=== PATIENT | male | born 1995 | race African-American/Black ===

== ENCOUNTER 2017-08-01 11:13 | Emergency (ER) | payer OTHER ==
[~2017-08-01] VITALS: Ht 172.7 cm; Wt 72.6 kg
--- OUTSIDE RECORDS SUMMARY | 2017-08-01 11:21 | XMS REPORT | Continuity of Care Document ---
Author Author [facility] Organization [facility] Address [facility] [address] [place] [address] Phone Unavailable Support Name Relationship Address Phone KRIS ORTIZ DO Caregiver [address] [place] [address] Unavailable ABHI SAAB Next Of Kin Unknown Insurance Providers Guarantor Ely Lazcano Address [address] [place] [address] CELL Email N Payer [facility] [place] Policy Number [id number] Subscriber's Name Ely Lazcano Relationship 18 Self / Same As Patient Group Number [id number] Group Name [facility] Payer Payroll Deduction [place] Policy Number [id number] Subscriber's Name Ely Lazcano Relationship 18 Self / Same As Patient Advance Directives Directive Response Recorded Date/Time Do you have an Advanced Directive? No 03/10/99 7:21pm Advance Directives No 09/25/11 2:10pm Living Will No 09/25/11 2:10pm Power of Date Night Sitter for Health Care No 09/25/11 2:10pm Organ, Tissue, or Eye Donor No 09/25/11 2:10pm Do you have a signed organ donor card? No 03/10/99 7:21pm Chief Complaint and Reason for Visit Chief Complaint FLU SYNDROME Reason for Visit [id number] Problems Medical Problem Onset Date Status Flu Unknown Acute Laceration Unknown Acute Right foot sprain Unknown Acute Medications Current Home Medications Medication Dose Units Route Directions Days Qty Instructions Start Date Albuterol (Proair 17GM Hfa Inhaler*) 1 Puff Inh 2 Puff Inhalation Every 6 To 8 Hours As Needed for Cough 1 Inhaler INHALE 2 PUFFS 03/22/17 Ibuprofen (Ibuprofen 800MG*) 800 Mg Tablet 800 Mg ORAL Three Times A Day 30 Tablet 06/09/15 No Known Medications . Oseltamivir Phosphate (Tamiflu) 75 Mg Capsule 75 Mg ORAL Twice A Day 10 Cap 03/22/17 Past Home Medications Medication Directions Ordered Status Cephalexin Monohydrate (Keflex) 250 Mg Capsule, 250 Mg Oral Three Times A Day 04/09/09 Discontinued Methylphenidate Hcl (Concerta) 27 Mg/Bottle Tab.osm.24, Daily Discontinued Social History Social History Problem Response Recorded Date/Time Onset Date Status Smoking Status Never smoker 06/09/2015 7:42pm Not Applicable Not Applicable Tobacco Use Denies Use 06/09/2015 7:42pm Not Applicable Not Applicable Smoking Status Start Date Stop Date Never smoker Hospital Discharge Instructions No hospital discharge instruction information available. Plan of Care Discharge Date 03/22/17 2:20am Condition at Discharge Stable Instructions/Education Provided Influenza (ED) Forms Provided WORK RELEASE Prescriptions See Medication Section Functional Status Query Response Date Recorded Patient Behavior Cooperative Appropriate March 22, 2017 1:30am Allergies, Adverse Reactions, Alerts No known allergies. Immunizations Query Response on File Recorded Date/Time Hx Diphtheria, Pertussis, Tetanus Vaccination Unknown 03/22/17 1:30am Hx Influenza Vaccination Yes 03/22/17 1:30am Hx Pneumococcal Vaccination No 03/22/17 1:30am Hx Tetanus Toxoid Vaccination Y - 9 YEARS AGO 04/09/09 9:20pm Vital Signs Acute Vital Signs Vital Response Date/Time Temperature (Fahrenheit) 99.8 degrees F (97.6 - 99.5) 03/22/2017 2:10am Temperature Source Temporal Artery 03/22/2017 2:10am Pulse Rate (adult) 116 bpm (60 - 90) 03/22/2017 2:10am Respiratory Rate 20 bpm (12 - 24) 03/22/2017 2:10am Blood Pressure 100/57 mm Hg 03/22/2017 2:10am O2 Sat by Pulse Oximetry 96 % (90 - 100) 03/22/2017 2:10am Oxygen Delivery Method Room Air 03/22/2017 2:10am Pain Location Body Site Modifier Lower 03/22/2017 2:10am Pain Description Aching 03/22/2017 2:10am Height 5 ft 8 in 03/22/2017 1:30am Weight 147.71 lb 03/22/2017 1:30am Body Mass Index 22.0 kg/m^2 03/22/2017 1:30am Results No relevant diagnostic test, laboratory data and/or discharge summary information available. Procedures No procedure information available. Encounters Encounter Location Arrival/Admit Date Discharge/Depart Date Attending Provider Departed Emergency Room [place] 03/22/17 1:29am 03/22/17 2:20am KRIS ORTIZ DO Recent Diagnosis
--- OUTSIDE RECORDS SUMMARY | 2017-08-01 11:21 | XMS REPORT | Continuity of Care Document ---
Author Author [facility] Address Unknown Phone Unavailable Allergies Active Description Code Type Severity Reaction Onset Reported/Identified Relationship to Patient Clinical Status Yes NKDA N/A N/A Medications Medication Packaging Start Date Stop Date Route Dosage Sig CLINDAMYCIN HCL 10/01/2016 ORAL 40 4 times a day Problems Date Dx Coded Attending Type Code Diagnosis Diagnosed By 06/18/2013 JOVANNI MARLOW MD V03.89 MENINGOCOCCAL DX Procedures There is no data. Results There is no data. Encounters ACCT No. Visit Date/Time Discharge Status Pt. Type Provider Facility Loc./Unit Complaint [id number] 06/18/2013 12:47:00 06/18/2013 23:59:59 CLS Outpatient JOVANNI MARLOW MD [id number] 07/05/2014 07:06:25 07/05/2014 07:06:25 DIS Outpatient
--- OUTSIDE RECORDS SUMMARY | 2017-08-01 11:21 | XMS REPORT | Continuity of Care Document ---
Author Author [facility] Organization [facility] Address [facility] [address] [place] [id number] Phone Unavailable Support Name Relationship Address Phone YOBANY GLEASON DO Caregiver [address] [place] [address] Unavailable IGOR LAZCANO Next Of Kin [address] [place] [id number] Insurance Providers Payer Name Policy Number Subscriber Name Relationship [facility] [id number] Ely Lazcano 18 Self / Same As Patient Advance Directives Directive Response Recorded Date/Time Do you have an Advanced Directive? No 03/10/99 7:21pm Advance Directives No 09/25/11 2:10pm Living Will No 09/25/11 2:10pm Health Care Proxy No 06/09/15 6:57pm Power of Schedule Clerk for Health Care No 09/25/11 2:10pm Organ, Tissue, or Eye Donor No 09/25/11 2:10pm Do you have a signed organ donor card? No 03/10/99 7:21pm Chief Complaint and Reason for Visit Chief Complaint FOOT PROBLEM Reason for Visit [id number] Problems Active Problems Medical Problem Onset Date Status Right foot sprain Unknown Acute Medications Current Home Medications Medication Dose Units Route Directions Days/Qty Instructions Start Date No Known Medications 06/09/15 Ibuprofen (Motrin*) 800 Mg 800 Mg Oral Three Times A Day 30 06/09/15 Past Home Medications Medication Directions Ordered Status Cephalexin Monohydrate 250 Mg Capsule, 250 Mg Oral Three Times A Day Discontinued Methylphenidate Hcl 27 Mg/Bottle Tab.osm.24, Daily 04/09/09 Discontinued Social History Social History Problem Response Recorded Date/Time Smoking Status Never smoker 06/09/2015 7:42pm Tobacco Use Denies Use 06/09/2015 7:42pm Alcohol Use none 06/09/2015 7:42pm Drug Use none 06/09/2015 7:42pm Query Response Start Date Stop Date Smoking Status Never smoker Hospital Discharge Instructions No hospital discharge instructions. Plan of Care Discharge Date 06/09/15 8:37pm Condition at Discharge Stable Instructions/Education Provided Foot Sprain (ED) Forms Provided WORK RELEASE Prescriptions See Medication Section Functional Status Query Response Date Recorded Festus Coma Scale Total 15 June 09, 2015 7:10pm Patient Behavior Cooperative Appropriate June 09, 2015 7:10pm Allergies, Adverse Reactions, Alerts No known allergies. Immunizations Name Given Type Hx Diphtheria, Pertussis, Tetanus Vaccination Not Up To Date Historical Hx Influenza Vaccination Yes Historical Hx Pneumococcal Vaccination No Historical Hx Tetanus Toxoid Vaccination Y 9 YEARS AGO Historical Vital Signs Acute Vital Signs Vital Response Date/Time Temperature (Fahrenheit) 98.9 degrees F (97.6 - 99.5) 06/09/2015 8:24pm Temperature Source Temporal Artery 06/09/2015 8:24pm Pulse Rate (adult) 95 bpm (60 - 90) 06/09/2015 8:24pm Respiratory Rate 18 bpm (12 - 24) 06/09/2015 8:24pm Blood Pressure 118/67 mm Hg 06/09/2015 8:24pm O2 Sat by Pulse Oximetry 96 % (90 - 100) 06/09/2015 8:24pm Oxygen Delivery Method 06/09/2015 8:24pm Pain Location Body Site Modifier 06/09/2015 8:36pm Pain Description 06/09/2015 7:38pm Height 5 ft 8 in Weight 145 lb Body Mass Index 22.0 kg/m^2 Results No known relevant diagnostic tests, laboratory data and/or discharge summary. Procedures Procedure Status Date Provider(s) Foot Rt.4 Views(3OR More) Completed 06/09/15 YOBANY GLEASON DO Encounters Encounter Location Arrival/Admit Date Discharge/Depart Date Attending Provider Departed Emergency Room [place] 06/09/15 7:01pm 06/09/15 8:37pm YOBANY GLEASON DO Recent Diagnosis
--- OUTSIDE RECORDS SUMMARY | 2017-08-01 11:21 | XMS REPORT | Continuity of Care Document ---
Author Author [facility] Organization [facility] Address [facility] [address] [place] [address] Phone Unavailable Support Name Relationship Address Phone NUNU HANSON D.O. Caregiver [address] [place] [address] GUILHERME NOLAN Caregiver [address] [place] [address] KAISERABHI Next Of Kin Unknown Insurance Providers Payer Name Policy Number Subscriber Name Relationship [facility] Sig[place] [id number] Rinku Lazcano 18 Self / Same As Patient Payroll Deduction [employer] [id number] Rinku Lazcano 18 Self / Same As Patient Advance Directives Directive Response Recorded Date/Time Do you have an Advanced Directive? No 03/10/99 7:21pm Advance Directives No 09/25/11 2:10pm Living Will No 09/25/11 2:10pm Health Care Proxy No 12/05/15 5:40pm Power of Provider Scribe for Health Care No 09/25/11 2:10pm Organ, Tissue, or Eye Donor No 09/25/11 2:10pm Do you have a signed organ donor card? No 03/10/99 7:21pm Chief Complaint and Reason for Visit Chief Complaint LACERATION Reason for Visit Laceration Problems Active Problems Medical Problem Onset Date Status Laceration Unknown Acute Right foot sprain Unknown [...] 7:42pm Tobacco Use Denies Use 06/09/2015 7:42pm Employment Employed 12/05/2015 8:20pm Query Response Start Date Stop Date Smoking Status Never smoker Hospital Discharge Instructions No hospital discharge instructions. Plan of Care Discharge Date 12/05/15 8:35pm Condition at Discharge Stable Instructions/Education Provided Laceration (ED) Prescriptions See Medication Section Referrals NUNU HANSON D.O. - Additional Instructions/Education Wash the wounds with soap and water twice daily. apply a small amount of triple antiobiotic ointment to the wounds twice daily till healed. Make appointment for suture removal next saturday Functional Status Query Response Date Recorded [place] Coma Scale Total 15 December 05, 2015 7:10pm Patient Behavior Cooperative Appropriate December 05, 2015 7:10pm Allergies, Adverse Reactions, Alerts No known allergies. Immunizations Name Given Type Hx Diphtheria, Pertussis, Tetanus Vaccination Up To Date Historical Hx Influenza Vaccination No Historical Hx Pneumococcal Vaccination No Historical Hx Tetanus Toxoid Vaccination Y 9 YEARS AGO Historical Vital Signs Acute Vital Signs Vital Response Date/Time Temperature (Fahrenheit) 97.2 degrees F (97.6 - 99.5) 12/05/2015 8:35pm Temperature Source Temporal Artery 12/05/2015 8:35pm Pulse Rate (adult) 62 bpm (60 - 90) 12/05/2015 8:35pm Respiratory Rate 18 bpm (12 - 24) 12/05/2015 8:35pm Blood Pressure 96/62 mm Hg 12/05/2015 8:35pm O2 Sat by Pulse Oximetry 100 % (90 - 100) 12/05/2015 8:35pm Oxygen Delivery Method 12/05/2015 8:35pm Height 5 ft 9 in Weight 152 lb Body Mass Index 22.0 kg/m^2 Results No known relevant diagnostic tests, laboratory data and/or discharge summary. Procedures No known history of procedures. Encounters Encounter Location Arrival/Admit Date Discharge/Depart Date Attending Provider Departed Emergency Room [place] 12/05/15 5:43pm 12/05/15 8:35pm NUNU HANSON D.O. Recent Diagnosis
[2017-08-01 11:33] VITALS: BP 116/67
--- NOTE | 2017-08-01 11:33 | ED GU-Male ---
General Chief Complaint: -Male Stated Complaint: WANTS STD TEST Source: patient Exam Limitations: no limitations History of Present Illness Date Seen by Provider: Aug 01, 2017 Time Seen by Provider: 11:29 Initial Comments to ER requesting an STD test. He states that his last sexual partner, a female, reported to him that her boyfriend had given her gonorrhea however she states that she was tested and did not have any STD. He would like checked himself. He has no symptoms, no sores no penile drainage no dysuria. he did have unprotected intercourse about 2 days ago with her. Timing/Duration: constant Severity/Quality: other (no symptoms) Location: unknown Radiation: none Activities at Onset: none Prior Genitourinary Problems: none Sexual Nocona History: less than 2 months ago Associated Symptoms: No dysuria, No fever/chills, No loss of bladder control Allergies and Home Medications Patient Home Medication List Home Medication List Reviewed: Yes Review of Systems Constitutional: see HPI EENTM: see HPI Respiratory: no symptoms reported Cardiovascular: no symptoms reported Genitourinary: see HPI; denies burning, denies discharge, denies dysuria, denies frequency, denies flank pain, denies hematuria, denies incontinence, denies pain, denies other Musculoskeletal: no symptoms reported Skin: no symptoms reported Psychiatric/Neurological: No Symptoms Reported Endocrine: No Symptoms Reported Hematologic/Lymphatic: No Symptoms Reported Past Lvdlvwu-Fbuiha-Irzkaw Hx Patient Social History Recent Foreign Travel: No Contact w/Someone Who Travel: No Physical Exam Vital Signs Capillary Refill : General Appearance: WD/WN, no apparent distress HEENT: PERRL/EOMI, normal ENT inspection Neck: non-tender, full range of motion Respiratory: normal breath sounds, no respiratory distress, no accessory muscle use Gastrointestinal: normal bowel sounds, non tender, soft Male: normal genitalia; No testicular tenderness; other Extremities: normal range of motion, non-tender Neurologic/Psychiatric: alert, normal mood/affect, oriented x 3 Skin: normal color, warm/dry Progress/Results/Core Measures Suspected Sepsis SIRS Temperature: Pulse: Respiratory Rate: Blood Pressure / Mean: Results/Orders My Orders Orders - AISLINN HASSAN APRN Neisseria Gonorrhea Swab (08/01/17 11:26) Chlamydia Trachomatis Swab (08/01/17 11:26) Vital Signs/I&O Capillary Refill : Departure Impression Primary Impression: At risk for sexually transmitted disease due to unprotected sex Additional Impression: History of unprotected sex Disposition: HOME, SELF-CARE Condition: Stable Departure-Patient Inst. Decision time for Depature: 11:33 Referrals: NO,LOCAL PHYSICIAN (PCP) Primary Care Physician Patient Instructions: Sexually-Transmitted Diseases (DC) Add. Discharge Instructions: 1. STD results typically return in about 5-7 days. We'll call you if these are positive and if there is need for treatment. We did not test for herpes virus, hepatitis, HIV or syphilis. If you are sexually active these tests would be appropriate but should be obtained from your primary care provider AISLINN HASSAN APRN Aug 01, 2017 11:33
== END 2017-08-01 11:33 | disposition home or self-care (01) ==
LOC: ER 11:18
DX: Z20.2 Contact with and (suspected) exposure to infections with a predominantly sexual mode of transmission (principal)
CPT/HCPCS: 36415; 87491; 87591; 99281